=== PATIENT | female | born 1980 | race African-American/Black ===

== ENCOUNTER 2024-05-02 07:36 | Outpatient (RCR) | payer OTHER, SELFPAY ==
[2024-04-19 10:06] VITALS: BP 98/58
[2024-04-19] MEDS: VENOFER 110 MG IV (10:14)
[2024-04-19 11:40] VITALS: BP 100/64
[2024-04-26 11:41] VITALS: BP 97/66
[2024-04-26] MEDS: VENOFER 110 MG IV (11:58)
[2024-04-26 13:30] VITALS: BP 102/68
[2024-05-02] MEDS: VENOFER 110 MG IV (08:08)
[2024-05-02 08:11] VITALS: BP 100/65
[2024-05-02 09:20] VITALS: BP 105/66
== END 2024-05-02 23:59 | disposition home or self-care (01) ==
LOC: OID 07:36
PROVIDERS: ATTENDING PHYSICIAN Physician Assistant Medical
DX: D50.9 Iron deficiency anemia, unspecified (principal); N92.0 Excessive and frequent menstruation with regular cycle; R06.02 Shortness of breath
CPT/HCPCS: 96365; J1756

== ENCOUNTER 2024-05-17 08:36 | Outpatient (RCR) | payer OTHER, SELFPAY ==
[2024-05-10 08:35] VITALS: BP 98/62
[2024-05-10] MEDS: VENOFER 110 MG IV (08:55)
[2024-05-10 10:00] VITALS: BP 113/71
[2024-05-17] MEDS: VENOFER 110 MG IV (09:01)
[2024-05-17 09:10] VITALS: BP 96/65
== END 2024-05-20 09:34 | disposition home or self-care (01) ==
LOC: OID 08:36
PROVIDERS: ATTENDING PHYSICIAN Physician Assistant Medical
DX: D50.9 Iron deficiency anemia, unspecified (principal); R06.02 Shortness of breath; N92.0 Excessive and frequent menstruation with regular cycle
CPT/HCPCS: 96365; J1756

== ENCOUNTER 2024-05-28 06:35 | Day surgery (SDC) | payer OTHER, SELFPAY | END 2024-05-28 15:48 | disposition home or self-care (01) | LOC: GI 06:35 | PROVIDERS: ATTENDING PHYSICIAN Student in an Organized Health Care Education/Training Program | DX: Z12.11 Encounter for screening for malignant neoplasm of colon (principal); D50.9 Iron deficiency anemia, unspecified; K22.9 Disease of esophagus, unspecified; K29.60 Other gastritis without bleeding; B96.81 Helicobacter pylori [H. pylori] as the cause of diseases classified elsewhere; B37.81 Candidal esophagitis; Z53.8 Procedure and treatment not carried out for other reasons | CPT/HCPCS: 43239; G0121; 88305; 88312; 88342 ==

== ENCOUNTER 2024-07-25 06:20 | Day surgery (SDC) | payer OTHER, SELFPAY | END 2024-07-25 12:23 | disposition home or self-care (01) | LOC: GI 06:20 | PROVIDERS: ATTENDING PHYSICIAN Student in an Organized Health Care Education/Training Program | DX: Z12.11 Encounter for screening for malignant neoplasm of colon (principal); K63.89 Other specified diseases of intestine; K63.5 Polyp of colon | CPT/HCPCS: 45380; 88305 ==